=== PATIENT | female | born 1970 | race African-American/Black ===

== ENCOUNTER → 2021-04-24 | Outpatient (CLI) | payer OTHER ==
[~2021-04-24] MED LIST: CALCIUM 600 WI1 EAC1 PO; COLACE 100MG C100 MG PO; FLECTOR1 EACH TD; IBUPROFEN600 MG PO; IRON325 M1 PO; MAXIMUM DAILY1 EAC1 PO; PERCOCET 10-321 EACH PO; VISTARIL25 MG PO; VITAMIN D35000 UNIT PO
== END ==
LOC: EMI 04-23 13:00
DX: M51.16 Intervertebral disc disorders with radiculopathy, lumbar region (principal); M48.061 Spinal stenosis, lumbar region without neurogenic claudication; M47.27 Other spondylosis with radiculopathy, lumbosacral region
CPT/HCPCS: 72148